=== PATIENT | female | born 1980 | race Caucasian/White ===

== ENCOUNTER 2023-08-31 17:31 | Emergency (ER) | payer MEDICAID ==
[~2023-08-31] VITALS: Ht 167.6 cm; Wt 95.3 kg
[2023-08-31] MEDS ORDERED: dexaMETHasone SOD PHOSPHATE 4 MG/ML VIAL IM ONE (19:00)
[2023-08-31] MEDS ORDERED: ACETAMINOPHEN ES 500 MG TABLET PO ONE (19:00)
[2023-08-31] MEDS ORDERED: dexaMETHasone SOD PHOSPHATE 1 ML ONE (19:05)
[2023-08-31] MEDS ORDERED: ACETAMINOPHEN ES 500 MG TABLET ONE (19:06)
[2023-08-31] MEDS ORDERED: ACET-2605 PO (21:26)
[2023-08-31] MEDS ORDERED: IBUP-1955 PO (21:26)
[2023-08-31 21:41] VITALS: BP 134/85; TEMP 98.4; O2SAT 98
== END 2023-08-31 21:41 | disposition home or self-care (01) ==
LOC: ER 17:39
DX: J02.8 Acute pharyngitis due to other specified organisms (principal); F32.A Depression, unspecified
CPT/HCPCS: 99283; 96372; 87880; J1100; 86403-TC